=== PATIENT | male | born 1975 | race Caucasian/White ===

== ENCOUNTER → 2016-09-27 | Outpatient (CLI) | payer OTHER ==
--- NOTE | 2016-09-27 09:37 | XR ---
EXAMINATION TYPE: XR cervical spine comp DATE OF EXAM: 09/27/2016 9:12 AM COMPARISON: NONE HISTORY: Neck pain Odontoid, frontal, lateral, and bilateral oblique views of the cervical spine are submitted. The odontoid is intact. There are no compression deformities. The prevertebral soft tissue structur es are within normal limits. IMPRESSION: 1. No acute process. If symptoms persist consider MRI.
== END | disposition home or self-care (01) ==
LOC: RADXRMAIN 08:47
PROVIDERS: ATTEND Physical Medicine & Rehabilitation
DX: M50.30 Other cervical disc degeneration, unspecified cervical region (principal)
CPT/HCPCS: 72050

== ENCOUNTER 2017-11-24 05:33 | Emergency (ER) | payer BC, OTHER ==
[2017-11-24 05:41] VITALS: BP 134/80; PULSE 95; RESP 18; TEMP 98
[2017-11-24] MEDS ORDERED: NEOMYCIN-POLYMYXIN-HC (3.5-10,000-10 MG) OTIC DROPS 10 ML BTL RIGHT EAR STA (06:00)
--- NOTE | 2017-11-24 06:04 | ED ---
ENT HPI - General Chief complaint: ENT Stated complaint: ENT Time Seen by Provider: 11/24/17 05:55 Source: patient Mode of arrival: ambulatory Limitations: no limitations - History of Present Illness Initial comments: This patient is a 42-year-old man who states that he had been having some difficulty with hearing from the right ear so his partner had irrigated some cerumen from the ear on Friday. He states that over the following day to 2 he began to develop pain to the right ear. He states that now his ears very tender , he cannot touch the ear. He states that it sounds like there is still water in his ear. Patient denies any blood from the ear. Currently no drainage. MD complaint: ear pain Onset/Timin -: days(s) Location: R ear Severity: moderate Quality: aching Consistency: constant Improves with: none Worsens with: swallowing, other (Palpation) - Related Data Home Medications Medication Instructions Recorded Confirmed ALPRAZolam [Xanax] 2 tab PO TID PRN 11/26/14 12/19/15 HYDROcodone/APAP 10-325MG [[place] 1 tab PO Q4-6H PRN 11/26/14 12/19/15 10-325] Previous Rx's Medication Instructions Recorded HYDROcodone/APAP 5-325MG [[place] 5] 1 - 2 each PO Q4H PRN #20 tab 12/19/15 Acetaminophen-Codeine 300-30mg 1 tab PO Q4H PRN #12 tablet 11/24/17 [Tylenol w/codeine #3] Allergies Allergy/AdvReac Type Severity Reaction Status Date / Time morphine AdvReac Nausea & Verified 11/24/17 05:41 Vomiting & Diarrhea Review of Systems ROS Statement: Those systems with pertinent positive or pertinent negative responses have been documented in the HPI. ROS Other: All systems not noted in ROS Statement are negative. Constitutional: Denies: fever, chills ENT: Reports: ear pain Respiratory: Denies: cough, dyspnea Skin: Denies: rash Neurological: Denies: headache Past Medical History Past Medical History: Osteoarthritis (OA) Additional Past Medical History / Comment(s): degenerative disc disease, back pain History of Any Multi-Drug Resistant Organisms: None Reported Past Surgical History: Orthopedic Surgery Additional Past Surgical History / Comment(s): hand surg. Additional Past Anesthesia/Blood Transfusion Reaction / Comment(s): never had anesthesia before, no family problems Past Psychological History: Anxiety, Depression Smoking Status: Never smoker Past Alcohol Use History: None Reported Past Drug Use History: None Reported - Past Family History Mother Family Medical History: No Reported History General Exam Limitations: no limitations General appearance: alert, in no apparent distress Head exam: Present: atraumatic, normocephalic Eye exam: Present: normal appearance ENT exam: Present: normal oropharynx, other (There is tragus tenderness. There is edema of the external auditory canal.). Absent: normal external ear exam Neck exam: Present: normal inspection, full ROM. Absent: tenderness, lymphadenopathy Course Vital Signs 11/24/17 05:38 Temperature 98 F Pulse Rate 95 Respiratory 18 Rate Blood Pressure 134/80 O2 Sat by Pulse 99 Oximetry Disposition Clinical Impression: Otitis externa Disposition: HOME SELF-CARE Condition: Good Instructions: Otitis Externa (ED) Prescriptions: Acetaminophen-Codeine 300-30mg [Tylenol w/codeine #3] 1 tab PO Q4H PRN #12 tablet PRN Reason: Pain Referrals: Wiley Asencio MD [Primary Care Provider] - 1-2 days Isaiah Powell MD [STAFF PHYSICIAN] - 1-2 days
[2017-11-24] MEDS ORDERED: IBUPROFEN 400 MG TAB PO STA (06:05)
[2017-11-24] MEDS ORDERED: Acetaminophen-Codeine 300-30mg TAB PO STA (06:06)
== END 2017-11-24 06:30 | disposition home or self-care (01) ==
LOC: EC 05:33
DX: H60.91 Unspecified otitis externa, right ear (principal); Z88.5 Allergy status to narcotic agent
CPT/HCPCS: 99282

== ENCOUNTER 2017-11-25 04:04 | Emergency (ER) | payer BC ==
[2017-11-25 04:11] VITALS: RESP 16; TEMP 97.9
[2017-11-25] MEDS ORDERED: KETOROLAC 60 MG/2 ML VIAL IM STA (04:20)
[2017-11-25] MEDS ORDERED: HYDROcodone/APAP 7.5-325MG 1 EACH TAB PO ONE (04:22)
--- NOTE | 2017-11-25 04:24 | ED ---
ENT HPI - General Chief complaint: ENT Stated complaint: EAR PAIN Time Seen by Provider: 11/25/17 04:12 Source: patient Mode of arrival: ambulatory Limitations: no limitations - History of Present Illness Initial comments: Patient is a 42-year-old man who has had increasing right ear pain since having his ear irrigated for cerumen on Friday. Seen here yesterday and starting course performed but he does not believe that the drops are actually getting into his ear. He states that the hearing does feel somewhat muffled now. complaint: ear pain -: days(s) Location: R ear Severity: severe Quality: aching, constant Consistency: constant Improves with: none Worsens with: other (Palpation) - Related Data Home Medications Medication Instructions Recorded Confirmed ALPRAZolam [Xanax] 2 tab PO TID PRN 11/26/14 12/19/15 HYDROcodone/APAP 10-325MG [[place] 1 tab PO Q4-6H PRN 11/26/14 12/19/15 10-325] Previous Rx's Medication Instructions Recorded HYDROcodone/APAP 5-325MG [[place] 5] 1 - 2 each PO Q4H PRN #20 tab 12/19/15 Acetaminophen-Codeine 300-30mg 1 tab PO Q4H PRN #12 tablet 11/24/17 [Tylenol w/codeine #3] Amoxicillin/Potassium Clav 1 tab PO Q12HR #14 tab 11/25/17 [Augmentin 875-125 Tablet] Allergies Allergy/AdvReac Type Severity Reaction Status Date / Time morphine AdvReac Nausea & Verified 11/25/17 04:10 Vomiting & Diarrhea Review of Systems ROS Statement: Those systems with pertinent positive or pertinent negative responses have been documented in the HPI. ROS Other: All systems not noted in ROS Statement are negative. Constitutional: Denies: fever, chills Eyes: Denies: eye pain ENT: Reports: ear pain. Denies: throat pain, congestion Respiratory: Denies: cough, dyspnea Skin: Denies: rash Neurological: Denies: headache Past Medical History Past Medical History: Osteoarthritis (OA) Additional Past Medical History / Comment(s): degenerative disc disease, back pain History of Any Multi-Drug Resistant Organisms: None Reported Past Surgical History: Orthopedic Surgery Additional Past Surgical History / Comment(s): hand surg. Additional Past Anesthesia/Blood Transfusion Reaction / Comment(s): never had anesthesia before, no family problems Past Psychological History: Anxiety, Depression Smoking Status: Never smoker Past Alcohol Use History: None Reported Past Drug Use History: None Reported - Past Family History Mother Family Medical History: No Reported History General Exam Limitations: no limitations General appearance: alert, in no apparent distress Head exam: Present: atraumatic, normocephalic Eye exam: Present: normal appearance. Absent: scleral icterus, conjunctival injection ENT exam: Present: normal oropharynx, normal external ear exam (No tenderness over the mastoid), other (There is marked edema of the right external auditory canal and tragus tenderness.) Neck exam: Present: normal inspection, full ROM. Absent: tenderness, meningismus Skin exam: Present: warm, dry, intact, normal color. Absent: rash Course Vital Signs 11/25/17 04:07 Temperature 97.9 F Pulse Rate 75 Respiratory 16 Rate Blood Pressure 142/77 O2 Sat by Pulse 99 Oximetry Medical Decision Making - Medical Decision Making Patient has had an increase in any edema of the external auditory canal, requiring a Bray wick placement. I placed this without complication and then applied the Cortisporin drops. - Lab Data Lab Results 11/25/17 Range/Units 04:36 POC Glucose (mg/dL) 114 H (75-99) mg/dL POC Glu Supervisor [employer] ID Chris Naqvi Disposition Clinical Impression: Otitis externa, Otitis media Disposition: HOME SELF-CARE Condition: Fair Instructions: Otitis Externa (ED), Otitis Media (ED) Prescriptions: Amoxicillin/Potassium Clav [Augmentin 875-125 Tablet] 1 tab PO Q12HR #14 tab Referrals: Wiley Asencio MD [Primary Care Provider] - 1-2 days Isaiah Powell MD [STAFF PHYSICIAN] - 1-2 days
[2017-11-25 04:38] LABS: Glucose,Whole Blood 114 mg/dL (75-99)
--- NOTE | 2017-11-25 05:43 | CT ---
EXAM: CT Temporal Bones Without Intravenous Contrast CLINICAL HISTORY: ITS.REASON CT Reason: Pain TECHNIQUE: Axial computed tomography images of the temporal bones without intravenous contrast. CTDI is 30.6 mGy and DLP is 477.4 mGy-cm. This CT exam was performed using one or more of the following dose reduction techniques: automated exposure control, adjustment of the mA and/or kV according to patient size, and/or use of iterative reconstruction technique. COMPARISON: None. FINDINGS: Right ossicles and middle ear: Opacification throughout the right middle ear cavity, including within the sinus tympani. The right ossicles appear grossly intact on this exam, however, the stapes footplate is not well visualized. Right cochlea: Unremarkable. Right vestibule: Unremarkable. Right semicircular canals: Unremarkable. Right vestibular and cochlear aqueducts: Unremarkable. Right facial nerve canal: There appears to be dehiscence of the roof of the right facial nerve canal. Right internal auditory canal: Unremarkable. Right external auditory canal: Unremarkable. Right carotid canal: Unremarkable. Right jugular foramen: Unremarkable. Right mastoid air cells: Unremarkable. Right temporomandibular joint: Unremarkable. Left ossicles and middle ear: Unremarkable. Left cochlea: Unremarkable. Left vestibule: Unremarkable. Left semicircular canals: Unremarkable. Left vestibular and cochlear aqueducts: Unremarkable. Left facial nerve canal: Unremarkable. Left internal auditory canal: Unremarkable. Left external auditory canal: Unremarkable. Left carotid canal: Unremarkable. Left jugular foramen: Unremarkable. Left mastoid air cells: Unremarkable. Left temporomandibular joint: Unremarkable. Bones/joints: No acute fracture. Soft tissues: Skin thickening within and adjacent to the right external canal. The bony right external ear canal appears intact. The scutum appears intact. Lymph nodes: Mildly prominent right level IIa and IIb lymph nodes are likely reactive. Sinuses: Mild scattered paranasal sinus mucosal thickening. Other findings: No evidence of drainable fluid collection on this noncontrast exam. IMPRESSION: Nonspecific opacification within the right external and middle ear cavity. This could represent otitis externa and otitis media in the appropriate clinical setting. Correlation with otoscopic findings advised. Apparent dehiscence of the roof of the right facial nerve canal. Presumably reactive right-sided lymph nodes.
[2017-11-25] MEDS ORDERED: AMOXIC-POT CLAV 875MG STARTER 2 EACH TABLET PO STA (05:55)
[2017-11-25] MEDS ORDERED: NEOMYCIN-POLYMYXIN-HC (3.5-10,000-10 MG) OTIC DROPS 10 ML BTL RIGHT EAR STA (06:04)
[2017-11-25 06:23] VITALS: BP 115/75; PULSE 56
== END 2017-11-25 06:24 | disposition home or self-care (01) ==
LOC: EC 04:04
DX: H66.91 Otitis media, unspecified, right ear (principal); H60.91 Unspecified otitis externa, right ear; Z88.5 Allergy status to narcotic agent
CPT/HCPCS: 36415; 70486; 99284; 96372; J1885

== ENCOUNTER → 2022-08-13 | Outpatient (CLI) | payer BC ==
[2022-08-13 18:09] LABS: HCT 48.6 % (39.6-50.0); HGB 16.6 g/dL (13.0-17.0); MCH 31.3 pg (27.0-32.0); MCHC 34.2 g/dL (32.0-37.0); MCV 91.5 fL (80.0-97.0); Mean Platelet Volume 11.3 fL (9.5-12.2); NRBC Per 100 WBC 0 /100 WBCS (0.0-0.0); Platelet Count 199 X 10*3/uL (140-440); RBC 5.31 X 10*6/uL (4.40-5.60); RDW 12.7 % (11.5-14.5); WBC 9.72 X 10*3/uL (4.50-10.00)
[2022-08-13 18:58] LABS: ALT 31 U/L (10-49); AST 23 U/L (14-35); African American GFR (CKD) 118.3 (60.0-200.0); BUN/Creat Ratio 16.24 Ratio (12.00-20.00); Blood Urea Nitrogen 14.7 mg/dL (9.0-27.0); Calcium 10.1 mg/dL (8.7-10.3); Carbon Dioxide 27.6 mmol/L (20.0-27.5); Chloride 103 mmol/L (96-109); Chol/HDL Ratio 4.13 Ratio; Glucose 101 mg/dL (70-110); LDL Cholesterol,Calculated 158.2 mg/dL (0.0-131.0); Non-African American GFR(CKD) 102.1 (60.0-200.0); Potassium 5.2 mmol/L (3.5-5.5); Sodium 140 mmol/L (135-145); VLDL Calculation 16.86 mg/dL (5.00-40.00)
== END | disposition home or self-care (01) ==
LOC: LABWHC1 12:36
PROVIDERS: ATTEND Internal Medicine Cardiovascular Disease
DX: I48.11 Longstanding persistent atrial fibrillation (principal); E78.2 Mixed hyperlipidemia
CPT/HCPCS: 36415; 80048; 80061; 84443; 84450; 84460; 85027

== ENCOUNTER → 2022-09-02 | Day surgery (SDC) | payer BC ==
[2022-08-28 16:13] VITALS: BMI 32.5
[~2022-09-02] MED LIST: ALPRAZolam 0.25 MG TAB PO PRN; ALPRAZolam 0.5 MG TAB PO PRN; ASPIRIN 325 MG TAB PO ONE; HEPARIN SODIUM 1,000 UN/ML (10ML VL) IV ONE; HEPARIN SODIUM 1,000 UN/ML (10ML VL) ONE; IOPAMIDOL-370 125ML BTL INJ ONE; LIDOCAINE 1% INJ 10MG/ML (5 ML VIAL-PF) SQ ONE; MIDAZOLAM 2 MG/2 ML VIAL IV STA; MIDAZOLAM 2 MG/2 ML VIAL IVP ONE; NITROGLYCERIN SL TABS 0.4 MG TAB SUBLINGUAL PRN; RX INFO: IV CONTRAST WAS GIVEN 1 EACH MISC MISCELLANE PRN; SODIUM CHLORIDE 0.9% 1,000 ML in EMPTY BAG 1 BAG IV SCH; VERAPAMIL SYRINGE (5 MG/10 ML) INTRAARTER ONE; fentaNYL (PF) 50 MCG/ML 2 ML AMP IV ONE; fentaNYL (PF) 50 MCG/ML 2 ML AMP ONE
[2022-09-02 09:28] VITALS: TEMP 97.8
[2022-09-02] MEDS: MIDAZOLAM 2 MG/2 ML VIAL IV ONE ×2 (10:26→10:35)
--- NOTE | 2022-09-02 11:43 | CC ---
CARDIAC CATHETERIZATION REPORT INDICATION: Cardiomyopathy with [id number]-[id number] LV dysfunction in a patient with new-onset atrial fibrillation. PROCEDURE NOTE: After obtaining informed consent, left heart catheterization and coronary angiogram were performed via the right radial artery using size 3.5 right and left Charly catheters and a pigtail catheter. The patient tolerated the procedure well without any obvious immediate complications. The right radial artery access was obtained using modified Seldinger technique. A 6- Fijian sheath was placed. Catheters and wires were floated into the ascending aorta, where they were exchanged. The patient received 5 mg of verapamil and 5000 units of heparin per protocol. His Eliquis was stopped 3 days ago. The patient received moderate conscious sedation. Total sedation time was 30 minutes. FINDINGS: 1. Hemodynamics: Left ventricular end-diastolic pressure is 12 mm. There is no significant gradient across the aortic valve. 2. Left ventriculogram: Left ventriculogram was done in LAUREN position, shows dilated left ventricle with moderate LV dysfunction with an ejection fraction of 40%. 3. Angiographic Data: a.Right coronary artery: Right coronary artery is a large dominant vessel and is free of significant stenosis. LAD and circumflex coronary artery have almost separate origins. 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 Circ and its branches are free of significant stenosis. LAD and its branches are free of significant stenosis. 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 Moderate LV systolic dysfunction with dilated left ventricle. PLAN: I will control the patient's heart rate with beta blockers. Resume the Eliquis and schedule him for cardioversion 3 weeks from now. If the LV function does not improve at that time, we will have to evaluate him for the need for AICD. MMODL / IJN: [id number] /
[2022-09-02 17:02] VITALS: PULSE 84; RESP 16
[2022-09-02 17:04] VITALS: BP 94/57
== END ==
LOC: CATHCVL 08:49
PROVIDERS: ATTEND Internal Medicine Cardiovascular Disease
DX: I25.10 Atherosclerotic heart disease of native coronary artery without angina pectoris (principal); I48.19 Other persistent atrial fibrillation; I25.5 Ischemic cardiomyopathy; Z79.899 Other long term (current) drug therapy
CPT/HCPCS: 93458; C1769; C1894; J2250; J2001; J3010; J1644; Q9967

== ENCOUNTER 2022-12-02 06:20 | Day surgery (SDC) | payer BC ==
[~2022-12-02 06:20] MED LIST changes: -ALPRAZolam 0.25 MG TAB PO PRN; -ALPRAZolam 0.5 MG TAB PO PRN; -ASPIRIN 325 MG TAB PO ONE; -HEPARIN SODIUM 1,000 UN/ML (10ML VL) IV ONE; -HEPARIN SODIUM 1,000 UN/ML (10ML VL) ONE; -IOPAMIDOL-370 125ML BTL INJ ONE; +LACTATED RINGERS 1,000 ML IV SCH; +LIDOCAINE 1% (10MG/ML) FOR IV START INTRADERMA PRN; -LIDOCAINE 1% INJ 10MG/ML (5 ML VIAL-PF) SQ ONE; -MIDAZOLAM 2 MG/2 ML VIAL IV STA; -MIDAZOLAM 2 MG/2 ML VIAL IVP ONE; -NITROGLYCERIN SL TABS 0.4 MG TAB SUBLINGUAL PRN; -RX INFO: IV CONTRAST WAS GIVEN 1 EACH MISC MISCELLANE PRN; -SODIUM CHLORIDE 0.9% 1,000 ML in EMPTY BAG 1 BAG IV SCH; -VERAPAMIL SYRINGE (5 MG/10 ML) INTRAARTER ONE; -fentaNYL (PF) 50 MCG/ML 2 ML AMP IV ONE; -fentaNYL (PF) 50 MCG/ML 2 ML AMP ONE
[2022-12-02] MEDS ORDERED: LACTATED RINGERS 1,000 ML IV ONE (07:00)
[2022-12-02] MEDS ORDERED: MIDAZOLAM 2 MG/2 ML VIAL IVP ONE (07:10)
[2022-12-02] MEDS ORDERED: PROPOFOL 10 MG/ML 20 ML VIAL IV ONE (07:19)
[2022-12-02] MEDS ORDERED: MIDAZOLAM 2 MG/2 ML VIAL ONE (07:19)
[2022-12-02 07:22] VITALS: RESP 16; TEMP 96.5
[2022-12-02] MEDS ORDERED: BENZOCAINE SPRAY 1 CAN TOPICAL ONE (07:32)
[2022-12-02 09:11] VITALS: BP 99/65; PULSE 69
[2022-12-02] MEDS ORDERED: SODIUM CHLORIDE 0.9% 1,000 ML IV SCH (11:45)
--- NOTE | 2023-01-03 09:13 | PCN ---
PROCEDURE NOTE PROCEDURE: Cardioversion. INDICATION: Persistent atrial fibrillation. PROCEDURE NOTE: The patient was cardioverted using 150 joules of synchronized DC current. The patient is adequately anticoagulated, converted to sinus rhythm following a single shock. LALITO / ANAN: [id number] /
== END 2022-12-02 09:22 | disposition home or self-care (01) ==
LOC: OR 06:20
PROVIDERS: ATTEND Internal Medicine Cardiovascular Disease
DX: I48.11 Longstanding persistent atrial fibrillation (principal); I25.10 Atherosclerotic heart disease of native coronary artery without angina pectoris; F41.9 Anxiety disorder, unspecified; F32.A Depression, unspecified; F17.210 Nicotine dependence, cigarettes, uncomplicated; M19.90 Unspecified osteoarthritis, unspecified site; Z79.01 Long term (current) use of anticoagulants; Z79.899 Other long term (current) drug therapy
CPT/HCPCS: 92960; J2250; J2704

== ENCOUNTER → 2023-01-08 | Outpatient (CLI) | payer BC ==
--- NOTE | 2023-01-08 16:55 | P.SLEEP ---
History of Present Illness DATE: 01/08/2023 CONSULTATION/NEW PATIENT EVALUATION HISTORY OF PRESENT ILLNESS/SLEEP-WAKE EVALUATION: 47-year-old gentleman had been evaluated in the sleep center for possible obstructive sleep apnea hypopnea syndrome. SLEEP SCHEDULE: Usually sleep schedule from 10-11 PM to 4: 45 AM on weekdays and from 11-1 AM to 6-7 AM on weekend. FALLING ASLEEP: Patient has problems with falling asleep, although no TV in bedroom. DURING SLEEP: Patient usually sleeps on the back and side position with snoring and awakenings from sleep 2 times with nocturia. No history of hypnogogical hallucinations, sleep paralysis, or cataplexy. DURING THE DAY/WAKE STATE: Positive history of anxiety episodes. [place] sleepiness scale is in normal range 2. Patient doesn't take naps. PAST MEDICAL HISTORY: Atrial fibrillation converted to normal sinus rhythm by cardioversion, hyperlipidemia. PAST SURGICAL HISTORY: Lipoma have been removed. MEDICATIONS: Eliquis 5 mg twice a day, metoprolol 25 mg once a day, amiodarone 200 mg twice a day, atorvastatin 40 mg once a day. SOCIAL HISTORY: Positive history of smoking, quit 24 years ago, alcohol consumption occasional. FAMILY HISTORY: Heart problems. REVIEW OF SYSTEMS: Snoring, multiple awakenings from sleep. No fevers. No double vision. No recent chest pain. No shortness of breath. No abdominal pain. No bleeding episodes. No blood in urine. No seizure episodes. PHYSICAL EXAMINATION: GENERAL: A pleasant patient without any distress. VITAL SIGNS: BP 114/75 , HR 52 , RR 16 , weight 220.8 pounds, height 5 foot 7-3/4 inches, body mass index 34.0, temperature 97.3, oxygen saturation at room air 100% . HEENT: PERRLA, EOMI. Evaluation of oropharynx showed tongue protrudes midline, low position of soft palate Mallampati 3. NECK: Supple. No JVD. Thyroid is not palpable. 17 inches in circumference. LUNGS: Clear to percussion and to auscultation. Good air exchange. No wheezing or rhonchi. HEART: S1, S2 regular. No murmurs, gallops or rubs. ABDOMEN: Soft and nontender. Bowel sounds are present. No organomegaly appreciated. EXTREMITIES: No clubbing or cyanosis. CERTIFIED REGISTERED NURSE ANESTHETIST: Awake, alert, and oriented x3. Cranial nerves 2 to 7 intact. There is no fasciculation or atrophy noted. No focal deficits observed. ASSESSMENT: 1. Snoring, multiple awakenings from sleep, low position of soft palate Mallampati 3, wide neck 17 inches in circumference. Obstructive sleep apnea hypopnea syndrome. 2. Atrial fibrillation converted to normal sinus rhythm by cardioversion. 3. Hyperlipidemia. 4. Status post lipoma removed. 5. Mild obesity, body mass index 34.0 PLAN: 1. Polysomnography for evaluation of patient's breathing during sleep. 2. CPAP/BiPAP titration if sleep study confirms obstructive sleep apnea- hypopnea syndrome. 3. Preferable position during sleep on the side. 4. No driving if patient feels any sleepiness. Patient is aware of civil and criminal liability for unsafe driving. 5. Sleep hygiene with regular sleep time for at least 7.5-8 hours. 6. Watching weight. Thank you very much for referring this patient for consultation. Sincerely, Jeff Blancas MD, PhD, FAASM. Diplomat of [place] [employer], Sleep Medicine Board by [employer] Private Detective of [facility] [place] Past Medical History Past Medical History: Atrial Fibrillation, Myocardial Infarction (AR), Osteoa rthritis (OA) Additional Past Medical History / Comment(s): irregular heartbeat,degenerative disc disease, back pain questionable silent mi Last Myocardial Infarction Date:: unknown History of Any Multi-Drug Resistant Organisms: None Reported Past Surgical History: Heart Catheterization, Orthopedic Surgery Additional Past Surgical History / Comment(s): [facility]ORGE, hand surg,lipoma removed from abdomen Additional Past Anesthesia/Blood Transfusion Reaction / Comment(s): had a hard time getting sedated for lipoma surgery, no family problems,no hx blood transfusion Smoking Status: Never smoker - Past Family History Mother Family Medical History: AFIB, Congestive Heart Failure (CHF), COPD Medications and Allergies Home Medications Medication Instructions Recorded Confirmed Type Apixaban [Eliquis] 5 mg PO BID 08/28/22 11/28/22 History Atorvastatin [Lipitor] 40 mg PO HS 08/28/22 11/28/22 History Metoprolol Succinate (ER) [Toprol 50 mg PO DAILY 09/24/22 11/28/22 History XL] Amiodarone [Cordarone] 200 mg PO BID 11/28/22 11/28/22 History Allergies Allergy/AdvReac Type Severity Reaction Status Date / Time povidone-iodine Allergy Mild Rash/Hives Verified 12/02/22 06:49 [From Betadine] morphine AdvReac Nausea & Verified 12/02/22 06:49 Vomiting & Diarrhea Sleep Note - Sleep Note Sleep Note: Temperature: Pulse Rate: Respiratory Rate: Blood Pressure: SpO2: Height: Weight: BMI: Neck Circumference:
== END ==
LOC: SLEEP 15:42
PROVIDERS: ATTEND Internal Medicine
DX: G47.33 Obstructive sleep apnea (adult) (pediatric) (principal); I48.91 Unspecified atrial fibrillation; E78.5 Hyperlipidemia, unspecified; E66.9 Obesity, unspecified; Z68.34 Body mass index [BMI] 34.0-34.9, adult; Z99.89 Dependence on other enabling machines and devices; Z98.890 Other specified postprocedural states; Z88.5 Allergy status to narcotic agent; Z88.8 Allergy status to other drugs, medicaments and biological substances
CPT/HCPCS: 99211

== ENCOUNTER 2023-02-05 19:23 | Outpatient (CLI) | payer BC | END 2023-02-06 23:59 | LOC: 3 N SLEEP 19:23 → EDSTATUS 20:00 → 3 N SLEEP 02-06 06:00 | PROVIDERS: ATTEND Internal Medicine | DX: G47.33 Obstructive sleep apnea (adult) (pediatric) (principal); Z88.5 Allergy status to narcotic agent; Z88.8 Allergy status to other drugs, medicaments and biological substances | CPT/HCPCS: 95810 ==

== ENCOUNTER → 2023-02-05 | Outpatient (CLI) | payer BC ==
[2023-02-06 02:32] LABS: ALT 62 U/L (10-49); AST 35 U/L (14-35); Albumin 4.6 d/dL (3.8-4.9); Alkaline Phosphatase 51 U/L (41-126); BUN/Creat Ratio 12.11 Ratio (12.00-20.00); Blood Urea Nitrogen 10.9 mg/dL (9.0-27.0); Calcium 9.8 mg/dL (8.7-10.3); Carbon Dioxide 26.3 mmol/L (21.6-31.8); Chloride 104 mmol/L (96-109); Chol/HDL Ratio 2.17 Ratio; Globulin 2.3 d/dL (1.6-3.3); Glucose 88 mg/dL (70-110); LDL Cholesterol,Calculated 54.2 mg/dL (0.0-131.0); Potassium 4.6 mmol/L (3.5-5.5); Sodium 141 mmol/L (135-145); T4, Free (Free Thyroxine) 1.64 ng/dL (0.80-1.80); Total Bilirubin 0.9 mg/dL (0.3-1.2); Total Protein 6.9 d/dL (6.2-8.2)
[2023-02-06 03:19] LABS: Basophils # (A) 0.08 X 10*3/uL (0.00-0.10); Basophils % (A) 1.1 %; Eosinophils # (A) 0.15 X 10*3/uL (0.04-0.35); Eosinophils % (A) 2.1 %; HCT 45.8 % (39.6-50.0); Lymphocytes # (A) 1.89 X 10*3/uL (0.90-5.00); Lymphocytes % (A) 25.9 %; MCH 31.6 pg (27.0-32.0); MCHC 32.8 d/dL (32.0-37.0); MCV 96.4 FL (80.0-97.0); Mean Platelet Volume 11.9 FL (9.5-12.2); Monocytes # (A) 0.57 X 10*3/uL (0.20-1.00); Monocytes % (A) 7.8 %; NRBC Per 100 WBC 0 X 10*3/uL (0.00-0.01); Neutrophils # (A) 4.59 X 10*3/uL (1.80-7.70); Neutrophils % (A) 62.8 %; Platelet Count 178 X 10*3/uL (140-440); RBC 4.75 X 10*6/uL (4.40-5.60); RDW 12.9 % (11.5-14.5)
== END | disposition home or self-care (01) ==
LOC: LABWHC1 15:39
PROVIDERS: ATTEND Internal Medicine Cardiovascular Disease
DX: E78.2 Mixed hyperlipidemia (principal); E55.9 Vitamin D deficiency, unspecified; E07.9 Disorder of thyroid, unspecified; R73.9 Hyperglycemia, unspecified
CPT/HCPCS: 36415; 80053; 80061; 82306; 83036; 84439; 84443; 85025

== ENCOUNTER → 2023-04-30 | Outpatient (CLI) | payer BC ==
--- NOTE | 2023-04-30 16:45 | P.PN ---
Subjective DATE: 04/30/2023 FOLLOW UP VISIT. Patient returned to sleep center for follow-up visit to discuss results of sleep study and recommendations. I discuss results of sleep test with patient in details. No significant respiratory abnormalities have been documented during the sleep study. Very minimal periodic limb movements have been documented during the sleep test 13.6 times per hour without any micro-arousals. Patient occasionally may have slight restless leg symptoms while falling asleep, but that usually does not create any problem for him to fall asleep. Clinically no significant the history of kicking during the night.. . [place] sleepiness scale is 2, which is normal. MEDICATIONS:1. Eliquis 5 mg twice a day 2. Metoprolol 25 mg once a day 3. Atorvastatin 40 mg once a day 4. Amiodarone 200 mg once a day Durng physical exam: GENERAL: A pleasant patient without any distress. VITAL SIGNS: BP 114/75, HR 52, RR 16, weight 220, temperature 97.3, oxygen saturation at room air 100% . HEENT: PERRLA, EOMI. NECK: Supple. No JVD. LUNGS: Clear to percussion and to auscultation. Good air exchange. No wheezing or rhonchi. HEART: S1, S2 regular. ABDOMEN: Soft and nontender. EXTREMITIES: No clubbing or cyanosis. DISPLAY MECHANIC: Awake, alert, and oriented x3. No focal deficit. Impressions: 1. No significant respiratory abnormalities have been documented during the sleep test. 2. Very minimal amount of periodic limb movements 13.6 times per hour without micro-arousals related to leg movements. Clinically no symptoms related to leg movements. No excessive daytime sleepiness.. 3. History of atrial fibrillation converted to normal sinus rhythm by cardioversion in the past.. 4. Hyperlipidemia. 5. Mild obesity. Plan: 1. I discussed with patient possibility to use medications to prevent periodic limb movements and very minimal restless leg symptoms, but because there is no any clinical complains at the present time it is not necessary. 2. Sleep hygiene with regular time in bed for at least 8 hours. 3. Precautions related to driving. No driving if feel any sleepiness. Thank you very much for allowing me to participate in the management of your patient. Jeff Blancas MD, PhD, FAASM. Diplomat of [place] [employer], Sleep Medicine Board by [place] [employer] Publications Inspector of [facility] [place]
== END ==
LOC: 3 N SLEEP 16:08
PROVIDERS: ATTEND Internal Medicine
DX: G47.61 Periodic limb movement disorder (principal); I48.91 Unspecified atrial fibrillation; E66.9 Obesity, unspecified; E78.5 Hyperlipidemia, unspecified; Z79.01 Long term (current) use of anticoagulants; Z88.5 Allergy status to narcotic agent; Z88.8 Allergy status to other drugs, medicaments and biological substances
CPT/HCPCS: 99212

== ENCOUNTER → 2023-07-04 | Outpatient (CLI) | payer BC ==
[2023-07-04 15:58] LABS: Basophils # (A) 0.09 X 10*3/uL (0.00-0.10); Basophils % (A) 1.4 %; Eosinophils % (A) 1.5 %; HCT 48.2 % (39.6-50.0); Lymphocytes # (A) 1.82 X 10*3/uL (0.90-5.00); Lymphocytes % (A) 27.5 %; MCH 31.7 pg (27.0-32.0); MCHC 33.2 g/dL (32.0-37.0); MCV 95.4 FL (80.0-97.0); Mean Platelet Volume 11.5 FL (9.5-12.2); Monocytes # (A) 0.53 X 10*3/uL (0.20-1.00); NRBC Per 100 WBC 0 X 10*3/uL (0.00-0.01); Neutrophils # (A) 4.06 X 10*3/uL (1.80-7.70); Neutrophils % (A) 61.3 %; Platelet Count 194 X 10*3/uL (140-440); RBC 5.05 X 10*6/uL (4.40-5.60); RDW 12.9 % (11.5-14.5); WBC 6.62 X 10*3/uL (4.50-10.00)
[2023-07-04 16:10] LABS: ALT 49 U/L (10-49); AST 30 U/L (14-35); Albumin 4.7 g/dL (3.8-4.9); Albumin/Globulin Ratio 1.96 Ratio (1.60-3.17); Alkaline Phosphatase 45 U/L (41-126); BUN/Creat Ratio 15.22 Ratio (12.00-20.00); Blood Urea Nitrogen 13.7 mg/dL (9.0-27.0); Calcium 9.9 mg/dL (8.7-10.3); Carbon Dioxide 25.3 mmol/L (21.6-31.8); Chloride 103 mmol/L (96-109); Chol/HDL Ratio 2.42 Ratio; Globulin 2.4 g/dL (1.6-3.3); Glucose 94 mg/dL (70-110); LDL Cholesterol,Calculated 74.9 mg/dL (0.0-131.0); Sodium 139 mmol/L (135-145); T4, Free (Free Thyroxine) 1.44 ng/dL (0.80-1.80); Total Bilirubin 1.1 mg/dL (0.3-1.2); Total Protein 7.1 g/dL (6.2-8.2)
== END | disposition home or self-care (01) ==
LOC: LABWHC1 08:59
PROVIDERS: ATTEND Nurse Practitioner Family
DX: E78.2 Mixed hyperlipidemia (principal); E07.9 Disorder of thyroid, unspecified; I48.11 Longstanding persistent atrial fibrillation; R73.9 Hyperglycemia, unspecified
CPT/HCPCS: 36415; 80053; 80061; 83036; 84439; 84443; 85025

== ENCOUNTER → 2023-10-31 | Outpatient (CLI) | payer BC ==
[2023-11-01 04:01] LABS: NT-Pro-B-Type Natriuretic Pept 525 pg/mL (0-125)
[2023-11-01 04:20] LABS: ALT 35 U/L (10-49); AST 27 U/L (14-35); Blood Urea Nitrogen 12.2 mg/dL (9.0-27.0); Calcium 9.8 mg/dL (8.7-10.3); Carbon Dioxide 25.1 mmol/L (21.6-31.8); Chloride 100 mmol/L (96-109); Glucose 90 mg/dL (70-110); Potassium 4.1 mmol/L (3.5-5.5); Sodium 138 mmol/L (135-145)
== END | disposition home or self-care (01) ==
LOC: LABWHC1 15:56
PROVIDERS: ATTEND Internal Medicine Cardiovascular Disease
DX: I48.0 Paroxysmal atrial fibrillation (principal)
CPT/HCPCS: 36415; 80048; 83880; 84443; 84450; 84460

== ENCOUNTER 2023-12-11 06:16 | Day surgery (SDC) | payer BC ==
[2023-12-08 12:42] VITALS: BMI 33.7
[~2023-12-11 06:16] MED LIST changes: -LACTATED RINGERS 1,000 ML IV SCH; -LIDOCAINE 1% (10MG/ML) FOR IV START INTRADERMA PRN; +SODIUM CHLORIDE 0.9% 1,000 ML IV SCH
[2023-12-11] MEDS: LACTATED RINGERS 1,000 ML IV SCH (06:52)
[2023-12-11 06:57] VITALS: RESP 16; TEMP 97.8
[2023-12-11] MEDS: MIDAZOLAM 2 MG/2 ML VIAL IVP ONE (06:57)
[2023-12-11 07:14] LABS: African American GFR (CKD) >90 (>60 ml/min/1.73 sqM); Anion Gap 7 mmol/L; Blood Urea Nitrogen 19 mg/dL (9-20); Calcium 9.3 mg/dL (8.4-10.2); Carbon Dioxide 23 mmol/L (22-30); Chloride 109 mmol/L (98-107); Glucose 106 mg/dL (74-99); Non-African American GFR(CKD) >90 (>60 ml/min/1.73 sqM); Sodium 139 mmol/L (137-145)
[2023-12-11] MEDS: BENZOCAINE SPRAY 1 CAN TOPICAL ONE ×2 (07:23→07:31)
[2023-12-11] MEDS ORDERED: PROPOFOL 10 MG/ML 20 ML VIAL IV ONE (07:25)
[2023-12-11] MEDS ORDERED: LIDOCAINE 1% INJ 10MG/ML (20 ML MDV) ONE (07:25)
[2023-12-11 07:27] LABS: Potassium 4.6 mmol/L (3.5-5.1)
[2023-12-11] MEDS: LACTATED RINGERS 1,000 ML IV ONE (07:45)
[2023-12-11 09:12] VITALS: BP 91/60; PULSE 56
--- NOTE | 2023-12-11 10:27 | ECHOT ---
TRANSESOPHAGEAL ECHOCARDIOGRAM INDICATION: To rule out intracardiac thrombus prior to cardioversion in a patient with persistent atrial fibrillation. PROCEDURE NOTE: After obtaining informed consent, transesophageal echocardiogram was performed in left lateral position using an Omniplane probe. Local and IV sedation were obtained by the camp nurse. The patient tolerated the procedure well without any obvious immediate complications. FINDINGS: 1. There is no intracardiac thrombus within the left atrial appendage, left atrium, right atrium, right ventricle, or left ventricle. 2. Left ventricle has normal size and systolic function. 3. There is biatrial enlargement. 4. Mitral valve is anatomically normal. 5. There is mild to moderate central mitral regurgitation noted. 6. Tricuspid valve appears normal with mild tricuspid regurgitation. 7. Aortic root measures within normal limits. There is no evidence of aortic stenosis or regurgitation. 8. Interatrial septum does not show any evidence of [id number] shunt by agitated saline contrast study. CONCLUSIONS: 1. Normal LV systolic function. 2. Mild to moderate mitral regurgitation. 3. No intracardiac thrombus. PLAN: The patient will undergo cardioversion. MMODL / IJN: [id number] /
--- NOTE | 2023-12-12 08:23 | PCN ---
PROCEDURE NOTE PROCEDURE PERFORMED: Cardioversion note. INDICATION: Persistent atrial fibrillation. PROCEDURE NOTE: After obtaining informed consent making sure that the patient is adequately anticoagulated with Eliquis, ruling out an intracardiac thrombus with a transesophageal echo. The patient underwent cardioversion with synchronized DC current initially with 150 joules and subsequently with 200 joules and he converted to sinus rhythm with it. He will be discharged home on amiodarone and Eliquis that he is on. MMODL / IJN: [id number] /
== END 2023-12-11 09:07 | disposition home or self-care (01) ==
LOC: OR 06:16
PROVIDERS: ATTEND Internal Medicine Cardiovascular Disease
DX: I08.1 Rheumatic disorders of both mitral and tricuspid valves (principal); I48.19 Other persistent atrial fibrillation; Z79.01 Long term (current) use of anticoagulants; Z79.899 Other long term (current) drug therapy
CPT/HCPCS: 93312; 93320; 93325; 92960; 80048; J2250; J2001; J2704

== ENCOUNTER → 2024-01-02 | Outpatient (CLI) | payer BC ==
--- NOTE | 2024-01-02 09:21 | XR ---
EXAMINATION TYPE: XR calcaneus 2V RT DATE OF EXAM: 01/02/2024 COMPARISON: NONE HISTORY: Pain TECHNIQUE: 2 views submitted FINDINGS: There is a plantar calcaneal spur. Joint spaces preserved. Osseous structures intact. IMPRESSION: Plantar calcaneal spur.
== END ==
LOC: RADXRMAIN 08:37
PROVIDERS: ATTEND Internal Medicine Geriatric Medicine
DX: M77.31 Calcaneal spur, right foot (principal); M72.2 Plantar fascial fibromatosis

== ENCOUNTER → 2024-03-17 | Outpatient (CLI) | payer BC | END | disposition home or self-care (01) | LOC: LABWHC1 16:10 | PROVIDERS: ATTEND Internal Medicine Cardiovascular Disease | DX: I48.11 Longstanding persistent atrial fibrillation (principal) | CPT/HCPCS: 36415; 84443; 84450; 84460 ==

== ENCOUNTER → 2024-08-06 | Outpatient (CLI) | payer BC ==
[2024-08-06 18:31] LABS: Basophils # (A) 0.11 X 10*3/uL (0.00-0.10); Basophils % (A) 1.1 %; Eosinophils # (A) 0.17 X 10*3/uL (0.04-0.35); Eosinophils % (A) 1.8 %; HCT 45.6 % (39.6-50.0); HGB 14.8 g/dL (13.0-17.0); Lymphocytes # (A) 1.81 X 10*3/uL (0.90-5.00); Lymphocytes % (A) 18.7 %; MCH 31.2 pg (27.0-32.0); MCHC 32.5 g/dL (32.0-37.0); MCV 96.2 FL (80.0-97.0); Mean Platelet Volume 11.4 FL (9.5-12.2); Monocytes # (A) 0.49 X 10*3/uL (0.20-1.00); Monocytes % (A) 5.1 %; NRBC Per 100 WBC 0 X 10*3/uL (0.00-0.01); Neutrophils # (A) 7.09 X 10*3/uL (1.80-7.70); Neutrophils % (A) 73.1 %; Platelet Count 196 X 10*3/uL (140-440); RBC 4.74 X 10*6/uL (4.40-5.60); RDW 12.8 % (11.5-14.5); WBC 9.69 X 10*3/uL (4.50-10.00)
[2024-08-06 19:20] LABS: BUN/Creat Ratio 12.78 Ratio (12.00-20.00); Blood Urea Nitrogen 11.5 mg/dL (9.0-27.0); Chol/HDL Ratio 2.36 Ratio; Glucose 97 mg/dL (70-110); LDL Cholesterol,Calculated 64.8 mg/dL (0.0-131.0)
[2024-08-06 19:21] LABS: ALT 41 U/L (10-49); AST 28 U/L (14-35); Albumin 4.5 g/dL (3.8-4.9); Albumin/Globulin Ratio 1.96 Ratio (1.60-3.17); Alkaline Phosphatase 48 U/L (41-126); Calcium 9.4 mg/dL (8.7-10.3); Carbon Dioxide 24.6 mmol/L (21.6-31.8); Chloride 102 mmol/L (96-109); Globulin 2.3 g/dL (1.6-3.3); Potassium 4.2 mmol/L (3.5-5.5); Sodium 137 mmol/L (135-145); T4, Free (Free Thyroxine) 1.44 ng/dL (0.80-1.80); Total Bilirubin 0.9 mg/dL (0.3-1.2); Total Protein 6.8 g/dL (6.2-8.2)
== END | disposition home or self-care (01) ==
LOC: LABWHC1 12:53
PROVIDERS: ATTEND Nurse Practitioner Family
DX: I42.0 Dilated cardiomyopathy (principal); E07.9 Disorder of thyroid, unspecified; R73.9 Hyperglycemia, unspecified
CPT/HCPCS: 36415; 80053; 80061; 83036; 84439; 84443; 85025

== ENCOUNTER 2024-11-03 08:42 | Day surgery (SDC) | payer BC ==
[2024-11-01 12:51] VITALS: BMI 30.1
[~2024-11-03 08:42] MED LIST changes: +LACTATED RINGERS 1,000 ML IV SCH; -SODIUM CHLORIDE 0.9% 1,000 ML IV SCH; +SODIUM CHLORIDE 0.9% 500 ML 500 ML IV SCH
[2024-11-03] MEDS: IV FLUID CONTINUATION 1,000 ML IV ONE (09:30)
[2024-11-03 09:40] VITALS: TEMP 97.1
[2024-11-03] MEDS: MIDAZOLAM 2 MG/2 ML VIAL IV ONE (09:47)
[2024-11-03] MEDS ORDERED: PROPOFOL 10 MG/ML 20 ML VIAL IV ONE (09:55)
[2024-11-03 10:13] LABS: African American GFR (CKD) >90 (>60 ml/min/1.73 sqM); Anion Gap 10 mmol/L; Blood Urea Nitrogen 17 mg/dL (9-20); Calcium 9.8 mg/dL (8.4-10.2); Carbon Dioxide 26 mmol/L (22-30); Chloride 103 mmol/L (98-107); Glucose 101 mg/dL (74-99); Non-African American GFR(CKD) >90 (>60 ml/min/1.73 sqM); Potassium 4.3 mmol/L (3.5-5.1); Sodium 139 mmol/L (137-145)
[2024-11-03 10:18] VITALS: RESP 16
--- NOTE | 2024-11-03 10:21 | PCN ---
PROCEDURE NOTE INDICATION: Persistent atrial fibrillation. PROCEDURE NOTE: After obtaining informed consent, cardioversion was performed using 150 joules of synchronized DC current. The patient converted to sinus rhythm following a single shock. He is on amiodarone for rhythm suppression, and Eliquis for anticoagulation, which he is going to continue. He will follow up with me in a week's time. LALITO / CHEMO: [id number] /
[2024-11-03 10:40] VITALS: PULSE 57
[2024-11-03 11:09] VITALS: BP 91/62
== END 2024-11-03 11:33 | disposition home or self-care (01) ==
LOC: OR 08:42
PROVIDERS: ATTEND Internal Medicine Cardiovascular Disease
DX: I48.19 Other persistent atrial fibrillation (principal); I42.0 Dilated cardiomyopathy; E78.2 Mixed hyperlipidemia; F41.9 Anxiety disorder, unspecified; F90.9 Attention-deficit hyperactivity disorder, unspecified type; F17.210 Nicotine dependence, cigarettes, uncomplicated; M19.90 Unspecified osteoarthritis, unspecified site; Z91.041 Radiographic dye allergy status; Z88.5 Allergy status to narcotic agent; Z79.02 Long term (current) use of antithrombotics/antiplatelets; Z79.899 Other long term (current) drug therapy
CPT/HCPCS: 92960; 80048; J2250; J2704

== ENCOUNTER → 2024-12-31 | Outpatient (CLI) | payer BC | END | disposition home or self-care (01) | LOC: LABWHC1 14:59 | PROVIDERS: ATTEND Internal Medicine Cardiovascular Disease | DX: I48.11 Longstanding persistent atrial fibrillation (principal) | CPT/HCPCS: 36415; 84443 ==